=== PATIENT | female | born 1930 | race Asian ===

== ENCOUNTER → 2016-12-08 | Outpatient (CLI) | payer OTHER | LOC: FIMAGING 10:01 | DX: R41.89 Other symptoms and signs involving cognitive functions and awareness (principal); R93.0 Abnormal findings on diagnostic imaging of skull and head, not elsewhere classified ==

== ENCOUNTER → 2018-06-20 | Outpatient (CLI) | payer OTHER ==
[~2018-06-20] MED LIST: IOPAMIDOL (ISOVUE-300) 100 ML BTL ONE
== END ==
LOC: CIMAGING 14:17
PROVIDERS: ATTEND Family Medicine Geriatric Medicine
DX: I51.7 Cardiomegaly (principal); I70.0 Atherosclerosis of aorta
CPT/HCPCS: 74160-PO; 82565-PO; Q9967